=== PATIENT | female | born 1970 | race Caucasian/White ===

== ENCOUNTER 2016-09-21 10:15 | Inpatient (IN) | payer BC ==
--- NOTE | 2016-09-21 10:31 | PDOC ---
History of Present Illness - General Chief Complaint: Pain Stated Complaint: PRE-OP, Rt breast reconstruction sx Time Seen by Provider: 09/21/16 10:24 History Source: Patient Exam Limitations: No Limitations - History of Present Illness Initial Comments: CHIEF COMPLAINT: 46 y/o afebrile female with PMH HTN, GERD here for admission for right breast abscess. HISTORY OF PRESENT ILLNESS: The patient had breast implants done at [facility] in 2011 and states she's always had problems with the right breast. She states this past week the nipple of her right breast has become, swollen, painful, open and draining pus. The patient denies fever, chills, GABRIEL, neck pain , nausea, vomiting, diarrhea, constipation, CP, SOB, abd pain, back pain, hematuria, dysuria. She was sent in by Dr. Quispe for admission. He plans on bringing her to surgery today to debride the wound. Vital signs on arrival are notable for pulse of 101. REVIEW OF SYSTEMS: GENERAL/CONSTITUTIONAL: No fever/chills. No weakness. No weight change. HEAD, EYES, EARS, NOSE AND THROAT: No change in vision. No ear pain or discharge. No sore throat. CARDIOVASCULAR: No chest pain or shortness of breath. BREASTS: +swelling, redness, drainage to right breast RESPIRATORY: No cough, wheezing, or hemoptysis. GASTROINTESTINAL: No abd pain, nausea, vomiting, diarrhea, constipation. GENITOURINARY: No dysuria, frequency, or change in urination. MUSCULOSKELETAL: No joint or muscle swelling or pain. No neck or back pain. SKIN: No rash or easy bruising. NEUROLOGIC: No headache, vertigo, loss of consciousness, or loss of sensation. PHYSICAL EXAM: GENERAL: The patient is awake, alert, and fully oriented, in no acute distress. She is well appearing and ambulatory. HEAD: Normal with no signs of trauma. ENT: Pupils equal, round and reactive to light, extraocular movements intact, sclera anicteric, conjunctiva clear. Neck supple. LUNGS: Clear to auscultation bilaterally. Normal excursion. No respiratory distress or use of accessory muscles. BREASTS: Right breast is twice the size of the left breast, erythematous, warm and very TTP. The right areola is enlarged to 6cm, deformed, black and detached from the breast tissue on the medial border with active draining of purulent, foul smelling discharge. No active bleeding from open wound. CV: RRR, S1/S2, no MRG. Cap refill < 2 sec. ABDOMEN: Soft, non-distended, non-tender even to deep palpation, no hepatomegaly or splenomegaly, no masses. EXTREMITIES: Normal range of motion, no edema. NEUROLOGICAL: Normal speech, normal gait. CN II-XII grossly intact. PSYCH: Normal mood, normal affect. SKIN: Warm, dry, normal turgor, no rashes or lesions noted. Past History - Past Medical History Allergies/Adverse Reactions: Allergies Allergy/AdvReac Type Severity Reaction Status Date / Time shellfish derived Allergy Hives Verified 09/21/16 10:22 acetaminophen AdvReac vomitting Verified 09/21/16 10:22 [From Tylenol PM] diphenhydramine HCl AdvReac vomitting Verified 09/21/16 10:22 [From Tylenol PM] ibuprofen [From Motrin] AdvReac vomitting Verified 09/21/16 10:22 Home Medications: Ambulatory Orders Albuterol Sulfate [Proventil HFA Inhaler -] 1 - 2 inh PO TID 09/20/16 Aspirin [ASA -] 81 mg PO DAILY 09/20/16 Clonazepam [Klonopin] 1 mg PO TID 09/20/16 Metoprolol Succinate [Toprol Xl -] 25 mg PO DAILY 09/20/16 Omeprazole 20 mg PO DAILY 09/20/16 Oxycodone HCl/Acetaminophen [Percocet 5-325 mg Tablet] 2 tab PO Q6H PRN Anemia: No Asthma: Yes Cancer: No Cardiac Disorders: Yes (" muscle weak after childbirth") CVA: No COPD: No CHF: No Dementia: No Diabetes: No GI Disorders: Yes (gastritis, acid reflux) Disorders: No HTN: No Hypercholesterolemia: No Liver Disease: No Seizures: No Thyroid Disease: No - Surgical History Abdominal Surgery: Yes (neelam cook) - Psycho/Social/Smoking Cessation Hx Suicidal Ideation: No Smoking History: Never smoked Have you smoked in the past 12 months: No If you are a former smoker, when did you quit?: 11 years ago Information on smoking cessation initiated: No Hx Alcohol Use: No Drug/Substance Use Hx: No Substance Use Type: None Hx Substance Use Treatment: No *Physical Exam - Vital Signs Last Vital Signs Temp Pulse Resp BP Pulse Ox 97.5 F L 101 H 19 115/85 100 09/21/16 10:20 09/21/16 10:20 09/21/16 10:09/21/16 10:09/21/16 10:20 Medical Decision Making - Medical Decision Making A/P: 46 y/o afebrile female with right breast open wound that looks infected. Plan is to do pre-op labs and have her admitted to Dr. Quispe. Dr. Quispe informs me that she is scheduled for surgery this afternoon. The patient was made NPO. Ordered IV morphine and IV fluids. She is admitted to Dr. Quispe. *DC/Admit/Observation/Transfer Diagnosis at time of Disposition: Abscess of breast - Discharge Dispostion Condition at time of disposition: Stable Admit: Yes
[2016-09-21] MEDS ORDERED: SODIUM CHLORIDE 1,000 ML IV STA (10:47)
[2016-09-21] MEDS ORDERED: morphine CARPU-JECT 4 MG/1 ML DISP.SYRIN IVPUSH ONE (10:47)
[2016-09-21] MEDS ORDERED: morphine CARPU-JECT 4 MG/1 ML DISP.SYRIN ONE (11:29)
[2016-09-21 12:19] LABS: URINE APPEARANCE SLCLOUDY; URINE BILIRUBIN NEGATIVE (NEGATIVE); URINE BLOOD 3+ (NEGATIVE); URINE COLOR YELLOW; URINE GLUCOSE (UA) NEGATIVE (NEGATIVE); URINE KETONE 2+ (NEGATIVE); URINE LEUK ESTERASE TRACE (NEGATIVE); URINE NITRITE NEGATIVE (NEGATIVE)
[2016-09-21 12:23] LABS: URINE PROTEIN 1+ (NEGATIVE)
[2016-09-21 12:24] LABS: BASOPHIL 0.3 % (0-2.0); EOSINOPHIL 0.7 % (0-4.5); MCH 32.3 pg (25.7-33.7); MCHC 33.4 g/dl (32.0-36.0); MEAN CELL VOLUME 96.8 fl (80-96); MEAN PLT VOLUME 8.7 fl (7.5-11.1); NEUTROPHILS 68.1 % (42.8-82.8); PLATELET COUNT 256 K/MM3 (134-434); RDW 13.6 % (11.6-15.6); WHITE BLOOD COUNT 9.9 K/mm3 (4.0-10.0)
[2016-09-21 12:29] LABS: URINE MUCUS RARE; URINE RBC 1530 /hpf (0-3); URINE WBC 9 /hpf (3-5)
[2016-09-21 12:39] LABS: INR 0.98 (0.82-1.09); PROTHROMBIN TIME (PATIENT) 10.8 SEC (9.98-11.88)
[2016-09-21] MEDS ORDERED: PROPOFOL 20 ML ONE (13:07)
[2016-09-21] MEDS ORDERED: MIDAZOLAM HCL 2 MG/2 ML SINGLE DOSE VIAL ONE ×2 (13:08)
[2016-09-21 13:20] LABS: ALBUMIN 3.8 g/dl (3.4-5.0); ALK PHOS 77 U/L (45-117); ANION GAP 7 (8-16); BILIRUBIN,TOTAL 0.5 mg/dL (0.2-1.0); CALCIUM 8.8 mg/dL (8.5-10.1); CO2 25 mmol/L (21-32); CREATININE 0.7 mg/dL (0.55-1.02); GLUCOSE,RANDOM 73 mg/dL (74-106); SGPT/ALT 15 U/L (12-78); TOT PROT 7.3 g/dl (6.4-8.2)
[2016-09-21 13:24] LABS: SGOT/AST 15 U/L (15-37)
[2016-09-21] MEDS ORDERED: ceFAZolin SODIUM 1 GM VIAL IVPB ONE (13:42)
[2016-09-21] MEDS ORDERED: METOPROLOL TARTRATE 5 MG/5 ML VIAL ONE (13:54)
[2016-09-21] MEDS ORDERED: PROMETHAZINE HCL 25 MG/1 ML VIAL IVPUSH PRN (14:52)
[2016-09-21] MEDS ORDERED: HYDROmorphone HCL CARPU-JECT 1 MG/1 ML DISP.SYRIN IVPUSH PRN (14:52)
[2016-09-21] MEDS ORDERED: ONDANSETRON 4 MG/2 ML VIAL IVPUSH PRN (14:52)
[2016-09-21] MEDS ORDERED: LACTATED RINGERS SOLUTION 1,000 ML IV SCH (15:00)
--- NOTE | 2016-09-21 15:28 | OP ---
Operative Note - Note: Operative Date: 09/21/16 Pre-Operative Diagnosis: Acute Pain Right Breast with Open Wound and Necrosis of Nipple-Areola Complex Operation: Removal of Right Breast Prosthesis, Debridement of Necrotic Tissue, Placement of Wound VAC Post-Operative Diagnosis: Same as Pre-op Surgeon: German Quispe Anesthesia: General Specimens Removed: Necrotic Nipple Areolar Complex, Breast Prosthesis Drains & Tubes with Location: VAC dressing placed Operative Report Dictated: Yes
[2016-09-21] MEDS ORDERED: HYDROmorphone HCL CARPU-JECT 2 MG/1 ML DISP.SYRIN ONE (15:49)
--- NOTE | 2016-09-21 16:31 | EKG ---
Test Reason : Blood Pressure : / mmHG Vent. Rate : 084 BPM Atrial Rate : 084 BPM P-R Int : 124 ms QRS Dur : 076 ms QT Int : 362 ms P-R-T Axes : 046 035 024 degrees QTc Int : 427 ms NORMAL SINUS RHYTHM NORMAL ECG NO PREVIOUS ECGS AVAILABLE Confirmed by RANDALL PRESCOTT MD ([id number]) on 09/21/2016 4:31:42 PM Referred By: Confirmed By:RANDALL PRESCOTT MD
[2016-09-21 17:39] VITALS: BMI 26.6
[2016-09-21] MEDS: oxyCODONE HCL 5 MG TABLET PO PRN ×2 (18:17→21:35)
[2016-09-21] MEDS: PANTOPRAZOLE 20 MG TABLET (FP) PO SCH (23:31)
[2016-09-21] MEDS: clonazePAM 0.5 MG TABLET PO PRN (23:31)
--- NOTE | 2016-09-22 07:47 | PN ---
Progress Note (short form) - Note Progress Note: Vac in place. Patient remains in significant pain likely from VAC suction. Not sure that surgical space within breast is being adequately drained by VAC. Will change and assess later today. Will assess for discharge at that time but will likely not discharge today as pain management has been very difficult.
[2016-09-22] MEDS ORDERED: MEPERIDINE HCL CARPU-JECT 25 MG/1 ML DISP.SYRIN IVPUSH PRN ×2 (07:50→09:52)
[2016-09-22] MEDS ORDERED: ONDANSETRON 4 MG/2 ML VIAL IVPUSH PRN (08:50)
[2016-09-22] MEDS: clonazePAM 0.5 MG TABLET PO PRN ×3 (09:06→21:54)
[2016-09-22] MEDS: PANTOPRAZOLE 20 MG TABLET (FP) PO SCH (09:06)
[2016-09-22] MEDS: oxyCODONE HCL 5 MG TABLET PO PRN ×2 (09:06→16:41)
--- NOTE | 2016-09-22 09:13 | PN ---
Progress Note (short form) - Note Progress Note: ANESTHESIOLOGY POST-OP CHECK 46F s/p right breast implant removal and breast debridement under general anesthesia, POD #1. Pt sitting up in chair. C/o pain 10/10 and nausea with small amount of vomiting this morning. Said did not call nurse to ask for pain meds or nausea medication becuase didnt want to bother. Ambulating and voiding. Vital Signs Temperature 99 F 09/22/16 06:53 Pulse Rate 86 09/22/16 06:53 Respiratory Rate 18 09/22/16 06:53 Blood Pressure 111/71 09/22/16 06:53 O2 Sat by Pulse Oximetry (%) 100 09/21/16 16:30 Active Medications Clonazepam (Klonopin -) 0.5 mg PO Q6H PRN PRN Reason: ANXIETY Last Admin: 09/22/16 09:06 Dose: 0.5 mg Meperidine HCl (Demerol Injection -) 25 mg IVPUSH Q8H PRN PRN Reason: PAIN Ondansetron HCl (Zofran Injection) 4 mg IVPUSH Q4H PRN PRN Reason: NAUSEA AND/OR VOMITING Stop: 09/22/16 20:51 Last Admin: 09/22/16 09:07 Dose: 4 mg Oxycodone HCl (Roxicodone -) 5 mg PO Q4H PRN PRN Reason: PAIN Last Admin: 09/22/16 09:06 Dose: 5 mg Pantoprazole Sodium (Protonix -) 20 mg PO DAILY MELLISSA Last Admin: 09/22/16 09:06 Dose: 20 mg Gen: awake, alert, NAD No apparent anesthesia complications. REassured patient and instructed to not hesitate to call nurse and ask for medications when needed. Spoke with nurse as well. Continue management as per primary team.
[2016-09-22] MEDS ORDERED: PANTOPRAZOLE 20 MG TABLET (FP) PO ONE (12:15)
[2016-09-22] MEDS ORDERED: morphine CARPU-JECT 2 MG/1 ML DISP.SYRIN IVPUSH ONE (12:15)
[2016-09-22] MEDS: morphine CARPU-JECT 2 MG/1 ML DISP.SYRIN IVPUSH PRN (14:08)
--- NOTE | 2016-09-22 14:59 | OP ---
DATE OF OPERATION: 09/21/2016 PREOPERATIVE DIAGNOSIS: Acute and worsening pain, right breast, with open wound and necrosis of nipple-areolar complex. POSTOPERATIVE DIAGNOSIS: Acute and worsening pain, right breast, with open wound and necrosis of nipple-areolar complex. PROCEDURE PERFORMED: Removal of right breast prosthesis, debridement of necrotic tissue, and placement of wound vacuum-assisted closure. SURGEON: German Cotto MD ANESTHESIA: General via endotracheal tube. INDICATIONS: The patient presents with an open circumareolar breast wound with severe and worsening pain of the right breast. There is necrosis of the nipple-areolar complex which is full thickness in nature. The worsening nature of the patient's pain and impending exposure of a subglandular prosthesis warrants urgent surgical procedure. PROCEDURE: The patient is on the operating table in the supine position and general anesthesia was administered by the anesthesiologist. The area of the right chest was prepped and draped in the usual sterile fashion. An inframammary incision was made over a previous surgical scar approximately 6 cm in length. Dissection continued down through subcutaneous tissues using electrocautery and a large seroma cavity was entered and drained. The prosthesis was then removed. The nipple-areolar complex had full-thickness necrosis and this was debrided full thickness of the breast into the implant cavity. Debridement continued until bleeding tissue was appreciated. A wound VAC was then fashioned, creating a cylindrical plug using the wound foam and applying the VAC dressing. The patient was then awoken from anesthesia without any difficulty and she was taken from the operating room to the recovery room in satisfactory condition, having tolerated the procedure well. Prior to placement of the VAC dressing, the inframammary wound was closed in a layered fashion. Deep tissues were closed with No. 3-0 and 4-0 Biosyn suture in interrupted buried fashion and skin was closed with multiple 4-0 nylon sutures in interrupted fashion. A sterile dressing was placed over this which was included in the VAC dressing for an airtight seal. GERMAN COTTO M.D. /[id number]
--- NOTE | 2016-09-22 15:09 | PN ---
Progress Note (short form) - Note Progress Note: VAC dressing changed. No fluid collection in breast cavity. OK to discharge home if VAC unit available for home use.
[2016-09-23] MEDS: oxyCODONE HCL 5 MG TABLET PO PRN ×3 (02:20→23:07)
[2016-09-23] MEDS: clonazePAM 0.5 MG TABLET PO PRN ×2 (06:10→14:54)
[2016-09-23] MEDS: PANTOPRAZOLE 40 MG TABLET (FP) PO SCH (06:10)
[2016-09-23] MEDS: morphine CARPU-JECT 2 MG/1 ML DISP.SYRIN IVPUSH PRN ×2 (11:49→21:08)
[2016-09-24] MEDS: clonazePAM 0.5 MG TABLET PO PRN ×2 (02:20→10:19)
[2016-09-24] MEDS: PANTOPRAZOLE 40 MG TABLET (FP) PO SCH ×2 (06:01→06:03)
[2016-09-24] MEDS: oxyCODONE HCL 5 MG TABLET PO PRN ×4 (06:03→20:51)
[2016-09-24] MEDS ORDERED: BISACODYL 10 MG SUPP.RECT RC ONE (15:56)
[2016-09-24] MEDS ORDERED: BISACODYL 10 MG SUPP.RECT RC PRN (16:39)
[2016-09-24] MEDS: morphine CARPU-JECT 2 MG/1 ML DISP.SYRIN IVPUSH PRN (18:04)
--- NOTE | 2016-09-24 18:50 | PN ---
Progress Note (short form) - Note Progress Note: Patient improving somewhat. Constipation managed with Dulcolax. VAC dressing changed. Not much drainage in vac canister. Pinpoint bleeding noted in multiple areas around wound edges and within depth of wound. VAC replaced. To receive home unit tomorrow and discharge afterward.
[2016-09-24] MEDS ORDERED: ZOLPIDEM TARTRATE 5 MG TABLET PO ONE ×2 (19:01→22:00)
[2016-09-25] MEDS: PANTOPRAZOLE 40 MG TABLET (FP) PO SCH ×2 (05:54→06:55)
[2016-09-25] MEDS: oxyCODONE HCL 5 MG TABLET PO PRN ×4 (05:55→23:31)
[2016-09-25] MEDS: morphine CARPU-JECT 2 MG/1 ML DISP.SYRIN IVPUSH PRN (09:32)
[2016-09-25] MEDS: clonazePAM 0.5 MG TABLET PO PRN ×2 (09:44→20:48)
[2016-09-25] MEDS ORDERED: PT OWN MED DRAWER 7, Y5N ONE (12:45)
[2016-09-25] MEDS ORDERED: oxyCODONE HCL 5 MG TABLET ONE (12:47)
[2016-09-25] MEDS ORDERED: morphine CARPU-JECT 4 MG/1 ML DISP.SYRIN IVPUSH PRN (13:02)
--- NOTE | 2016-09-25 16:00 | PATH ---
Surgical Pathology Report Patient Name: RANDELL GONSALES Med. Rec. #: [id number] /Age/Gender: 1970 (Age: 46) / F Account: [id number] Location: [facility] MED/SURG Taken: 09/21/2016 Received: 09/22/2016 Reported: 09/25/2016 Physicians: German Quispe M.D. Specimen(s) Received A: NECROTIC TISSUE RIGHT BREAST B: REMOVED IMPLANT RIGHT BREAST Clinical History Open wound with tissue necrosis right breast Final Diagnosis A. RIGHT BREAST TISSUE, DEBRIDEMENT: GANGRENOUS NECROSIS. B. FINISH MENDER, RIGHT BREAST, REMOVAL: BREAST IMPLANT (GROSS ONLY). Electronically Signed Serg Dale M.D. Gross Description A. Received in formalin labeled "necrotic tissue right breast," is a 5.8 x 4.3 x 1.4 cm aggregate of dupont brown, necrotic soft tissue fragments. A inbound customer service representative portion is submitted in one cassette. B. Received fresh labeled "removed breast implant right," is a 15 cm in diameter x 3.5 cm in depth rubbery, disc-shaped object, consistent with a breast implant. No soft tissue is present. No sections are submitted, gross only. /09/22/2016 saudi09/22/2016
[2016-09-25] MEDS ORDERED: ZOLPIDEM TARTRATE 5 MG TABLET PO ONE (21:30)
[2016-09-26] MEDS: PANTOPRAZOLE 40 MG TABLET (FP) PO SCH (07:04)
[2016-09-26] MEDS: oxyCODONE HCL 5 MG TABLET PO PRN ×2 (07:04→12:19)
[2016-09-26] MEDS: clonazePAM 0.5 MG TABLET PO PRN (07:04)
[2016-09-26 14:57] VITALS: BP 109/69; PULSE 88; TEMP 98.2
== END 2016-09-26 15:33 | disposition home health service (06) | DRG 571 ==
LOC: JER 10:15 → JASUSAT 10:48 → JERBED 10:48 → UNDOADMIN 10:48 → J8W 17:35 → JERBED 17:35 → JASUSAT 17:35 → J8W 17:35 → JASUSAT 17:46 → J8W 09-22 19:00
PROVIDERS: ADMIT Plastic Surgery; ATTEND Plastic Surgery
PROC: 0HPT0JZ Removal of Synthetic Substitute from Right Breast, Open Approach (ICD-10-PCS; 2016-09-21)
PROC: 0JB60ZZ Excision of Chest Subcutaneous Tissue and Fascia, Open Approach (ICD-10-PCS; principal; 2016-09-21 12:45)
DX: N61.1 Abscess of the breast and nipple (principal); I96 Gangrene, not elsewhere classified; I10 Essential (primary) hypertension; K21.9 Gastro-esophageal reflux disease without esophagitis; J45.909 Unspecified asthma, uncomplicated
CPT/HCPCS: 36415; 80053; 81003; 81015; 84703; 85025; 85610; 86850; 86900; 86901; 88300-TC; 88304-TC; 93005; 93010; 94760; 99282-25

== ENCOUNTER 2017-03-15 06:20 | Day surgery (SDC) | payer BC ==
[2017-03-14 15:42] VITALS: BMI 26.1
[2017-03-15] MEDS ORDERED: fentaNYL CITRATE 250 MCG/5 ML VIAL ONE (07:50)
[2017-03-15] MEDS ORDERED: PROPOFOL 20 ML ONE ×2 (07:50→09:16)
[2017-03-15] MEDS ORDERED: ROCURONIUM BROMIDE 50 MG/5 ML VIAL ONE (07:50)
[2017-03-15] MEDS ORDERED: MIDAZOLAM HCL 2 MG/2 ML SINGLE DOSE VIAL ONE (07:50)
[2017-03-15] MEDS ORDERED: SUCCINYLCHOLINE CHLORIDE 200 MG/10 ML VIAL ONE (07:51)
[2017-03-15] MEDS ORDERED: LIDOCAINE HCL/PF 2% SDV 5ML VIAL ONE (07:52)
[2017-03-15] MEDS ORDERED: ceFAZolin SODIUM 1 GM VIAL IVPB ONE (08:22)
[2017-03-15] MEDS ORDERED: ceFAZolin SODIUM 1 GM VIAL ONE (08:32)
[2017-03-15] MEDS ORDERED: DEXAMETHASONE SOD PHOSPHATE 4 MG/1 ML VIAL ONE (08:42)
[2017-03-15] MEDS ORDERED: GLYCOPYRROLATE 0.2 MG/1 ML VIAL ONE ×2 (09:21)
[2017-03-15] MEDS ORDERED: ONDANSETRON 4 MG/2 ML VIAL ONE (09:22)
[2017-03-15] MEDS ORDERED: NEOSTIGMINE METHYLSULFATE 0.5 MG/ML - 10 ML MDV ONE (09:22)
[2017-03-15] MEDS ORDERED: ONDANSETRON 4 MG/2 ML VIAL IVPUSH PRN (10:12)
--- NOTE | 2017-03-15 10:28 | OP ---
Operative Note - Note: Operative Date: 03/15/17 Pre-Operative Diagnosis: Absence of Right Breast and Nipple Areola Complex Operation: Right Breast Staged Reconstruction, Insertion of Submuscular Tissue Short Order Cook and Perforated Alloderm Sheet Implants: Tissue Short Order Cook: [place] CPX4 Tall Height 450cc Post-Operative Diagnosis: Same as Pre-op Surgeon: German Quispe Anesthesia: General Estimated Blood Loss (mls): 20 Drains & Tubes with Location: 15 Fr Round Lex-Wasserman x 1- Exiting Right Anterior Axillary Line Operative Report Dictated: Yes
[2017-03-15] MEDS ORDERED: oxyCODONE HCL 5 MG TABLET ONE ×2 (11:15→12:34)
--- NOTE | 2017-03-15 11:24 | OP ---
DATE OF OPERATION: 03/15/2017 PREOPERATIVE DIAGNOSIS: Absence of right breast and near-total absence of nipple-areolar complex. POSTOPERATIVE DIAGNOSIS: Absence of right breast and near-total absence of nipple-areolar complex. PROCEDURE PERFORMED: Right breast staged reconstruction with insertion of submuscular tissue correctional food service supervisor and perforated AlloDerm sheet. SURGEON: German Cotto MD ANESTHESIA: General. DESCRIPTION OF PROCEDURE: The patient was on the operating table in supine position, and general anesthesia was administered by the anesthesiologist. The area of the chest was prepped and draped in usual sterile fashion. The right breast was approached by reopening of the previously placed inframammary incision using a number 15 scalpel blade. This was carried down sharply through subcutaneous tissues, and hemostasis was achieved with electrocautery. Further dissection was facilitated with the electrocautery superiorly until the inferior edge of the pectoralis major muscle was identified. The lower segments of the muscle were scarred from previous surgery, so it was elected to facilitate coverage of a tissue correctional food service supervisor once inserted using a perforated AlloDerm sheet. The dissection continued superiorly in the subpectoral plane and laterally and medially adequately to support a tissue correctional food service supervisor of appropriate size. Tissue correctional food service supervisor selected was a [place] CPX 4 tall-height correctional food service supervisor, 450 mL in size. The tissue correctional food service supervisor was inserted without any difficulty, and orientation was confirmed using the tabs at the 3, 6, and 9 o'clock positions. The inferior tab was affixed to the underlying tissues using a 2-0 Vicryl suture. A sheet of perforated AlloDerm was brought onto the field and soaked for approximately 10 minutes. The inferior edge of the pectoralis major muscle and the dimensions of the pocket beneath it were measured, and the AlloDerm was trimmed to size. The AlloDerm was sutured superiorly to the inferior edge of the pectoralis major muscle using 2-0 Vicryl suture in interrupted horizontal mattress fashion, and the inferior border was draped over the tissue correctional food service supervisor and sutured at the level of the inframammary fold similarly with 2-0 Vicryl sutures in interrupted horizontal mattress fashion. Prior to suturing the inferior edge of the AlloDerm, a 15-[place] Island[place] round Lex-Wasserman drain was inserted through a separate stab incision in the anterior axillary line lateral to the inframammary fold. This was directed around and behind the tissue correctional food service supervisor and trimmed to size. Closure was then begun. Deep tissues were closed with 3-0 Biosyn suture in interrupted buried fashion and a deep dermal layer of 4-0 V-Loc 90 was used as an intradermal layer for skin. Several 5-0 nylon sutures were placed in interrupted fashion to secure the skin. Of note, prior to placing the tissue correctional food service supervisor, all air was removed and approximately 50 mL of saline was instilled. Now, at the conclusion of the procedure, the port finder was used to identify the port superiorly, and an additional 50 mL was instilled percutaneously. So, the total in the tissue correctional food service supervisor at the conclusion of the procedure was 100 mL. The patient was then awoken from anesthesia without any difficulty and taken from the operating room to the recovery room in satisfactory condition, having tolerated the procedure well. GERMAN COTTO M.D. /[id number]
[2017-03-15] MEDS ORDERED: LACTATED RINGERS SOLUTION 1,000 ML IV SCH (13:45)
[2017-03-15 14:06] VITALS: BP 130/80; PULSE 70; TEMP 98
== END 2017-03-15 14:15 | disposition home or self-care (01) ==
LOC: JASU-SURG 06:20
PROVIDERS: ATTEND Plastic Surgery
PROC: 0HHT0NZ Insertion of Tissue Expander into Right Breast, Open Approach (ICD-10-PCS; principal; 2017-03-15 08:00)
PROC: 0HHT0NZ Insertion of Tissue Expander into Right Breast, Open Approach (ICD-10-PCS; 2017-03-15 08:00)
DX: Z90.11 Acquired absence of right breast and nipple (principal)
CPT/HCPCS: 84703; 94760

== ENCOUNTER 2017-07-19 06:16 | Day surgery (SDC) | payer BC ==
[2017-07-17 17:40] VITALS: BMI 25.0
[~2017-07-19 06:16] MED LIST: ceFAZolin SODIUM 1 GM VIAL IVPB ONE
[2017-07-19] MEDS ORDERED: ONDANSETRON 4 MG/2 ML VIAL IVPUSH PRN (10:04)
[2017-07-19] MEDS ORDERED: PROMETHAZINE HCL 25 MG/1 ML VIAL IVPUSH PRN (10:04)
[2017-07-19] MEDS ORDERED: oxyCODONE HCL 5 MG TABLET PO PRN (10:04)
[2017-07-19] MEDS ORDERED: LACTATED RINGERS SOLUTION 1,000 ML IV SCH (10:15)
[2017-07-19] MEDS ORDERED: MIDAZOLAM HCL 2 MG/2 ML SINGLE DOSE VIAL ONE ×2 (10:23)
[2017-07-19] MEDS ORDERED: PROPOFOL 20 ML ONE ×2 (11:02→11:07)
[2017-07-19] MEDS ORDERED: ROCURONIUM BROMIDE 50 MG/5 ML VIAL ONE (11:02)
[2017-07-19] MEDS ORDERED: ceFAZolin SODIUM 1 GM VIAL IVPB ONE (11:08)
--- NOTE | 2017-07-19 11:56 | EKG ---
Test Reason : Blood Pressure : / mmHG Vent. Rate : 056 BPM Atrial Rate : 056 BPM P-R Int : 130 ms QRS Dur : 078 ms QT Int : 456 ms P-R-T Axes : 040 046 055 degrees QTc Int : 440 ms SINUS BRADYCARDIA OTHERWISE NORMAL ECG WHEN COMPARED WITH ECG OF 21-SEP-2016 11:56, VENT. RATE HAS DECREASED BY 28 BPM Confirmed by RANDALL PRESCOTT MD ([id number]) on 07/19/2017 11:55:48 AM Referred By: SAPPHIRE COTTO Confirmed By:RANDALL PRESCOTT MD
--- NOTE | 2017-07-19 12:14 | OP ---
Operative Note - Note: Operative Date: 07/19/17 Pre-Operative Diagnosis: Acquired Absence of Right Breast, Presence of Tissue Oyster Grower Operation: Right Breast Reconstruction Revision, Removal of Tissue Oyster Grower, Insertion of Permanent Prosthesis Implants: [place] Round Smooth Moderate Plus Profile 450cc Surgeon: German Quispe Anesthesia: General Operative Report Dictated: Yes
--- NOTE | 2017-07-19 13:08 | OP ---
DATE OF OPERATION: 07/19/2017 PREOPERATIVE DIAGNOSIS: Acquired absence of right breast with presence of tissue hvac r tech. POSTOPERATIVE DIAGNOSIS: Acquired absence of right breast with presence of tissue hvac r tech. PROCEDURE PERFORMED: Right breast reconstruction revision with removal of tissue hvac r tech and insertion of permanent prosthesis. SURGEON: German Cotto MD ANESTHESIA: General via LMA. DESCRIPTION OF PROCEDURE: The patient is on the operating table in the supine position, and general anesthesia was administered by the anesthesiologist. The area of the chest was prepped and draped in the usual sterile fashion. Markings had been made on the patient prior to surgery in a standing position, and these markings were now used as a guide for surgery. A portion of the previous surgical scar was incised with a No. 15 scalpel blade and dissection continued down through subcutaneous tissues using electrocautery. The AlloDerm cover of the previously placed tissue hvac r tech was incised, and the tissue hvac r tech was punctured and drained. It was then easily removed. A fiberoptic lighted retractor was used to examine the pocket, and the inframammary fold was lowered approximately 1 cm based upon measurements of the contralateral side. The pocket was also enlarged medially and superiorly. The implant selected was a [place] MemoryGel Smooth Round Moderate Plus Profile gel implant 450 350 mL in size. The pocket was irrigated with a solution of dilute Betadine, and the implant was inserted with the assistance of a Smyth Funnel. After ensuring proper implant orientation and position, the AlloDerm layer was reapproximated using 3-0 bios in interrupted fashion. The wound was then closed. Deep tissues were closed with No. 3-0 Biosyn suture in interrupted buried fashion, and a deep dermal layer of 4-0 V-Lock 90 was used for skin closure. Steri-Strips were applied as were sterile dressings, which were secured with a surgical bra. The patient was then awoken from anesthesia without any difficulty and taken from the operating room to the recovery room in satisfactory condition having tolerated the procedure well. GERMAN COTTO M.D. [id number]
[2017-07-19 13:33] VITALS: TEMP 98.7
[2017-07-19] MEDS ORDERED: oxyCODONE HCL 5 MG TABLET ONE (14:14)
[2017-07-19 14:49] VITALS: BP 148/87; PULSE 64
--- NOTE | 2017-07-20 17:43 | PATH ---
Surgical Pathology Report Patient Name: RANDELL GONSALES [facility]. Rec. #: [id number] /Age/Gender: 1970 (Age: 47) / F Account: [id number] Location: AMBULATORY SURG Taken: 07/19/2017 Received: 07/19/2017 Reported: 07/20/2017 Physicians: German Quispe M.D. Specimen(s) Received RIGHT BREAST EDGERMAN Clinical History Breast cancer Final Diagnosis BREAST, RIGHT, TISSUE EDGERMAN, REMOVAL: BREAST TISSUE EDGERMAN. MACROSCOPIC DIAGNOSIS. Electronically Signed Misti Reza M.D. Gross Description Received fresh labeled "right breast tissue electronics teacher," is a 12.5 x 12.5 x 5.0 cm foreign body, consistent with a breast tissue electronics teacher. No soft tissue is present. No sections are submitted, gross only. DL/07/19/2017 saudi/07/19/2017
== END 2017-07-19 14:50 | disposition home or self-care (01) ==
LOC: JASUSAT 06:16
PROVIDERS: ATTEND Plastic Surgery
PROC: 0HPT0NZ Removal of Tissue Expander from Right Breast, Open Approach (ICD-10-PCS; principal; 2017-07-19 10:00)
PROC: 0HRT0JZ Replacement of Right Breast with Synthetic Substitute, Open Approach (ICD-10-PCS; 2017-07-19 10:00)
DX: Z90.11 Acquired absence of right breast and nipple (principal)
CPT/HCPCS: 84703; 93005; 93010; 94760

== ENCOUNTER 2017-09-14 06:05 | Day surgery (SDC) | payer BC ==
[2017-09-13 14:54] VITALS: BMI 24.2
[2017-09-14] MEDS ORDERED: MIDAZOLAM HCL 2 MG/2 ML SINGLE DOSE VIAL ONE (07:58)
[2017-09-14] MEDS ORDERED: DEXAMETHASONE SOD PHOSPHATE 4 MG/1 ML VIAL ONE ×2 (08:17→09:28)
[2017-09-14] MEDS ORDERED: ceFAZolin SODIUM 1 GM VIAL ONE (08:22)
[2017-09-14] MEDS ORDERED: ceFAZolin SODIUM 1 GM VIAL IVPB ONE (08:22)
[2017-09-14] MEDS ORDERED: LIDOCAINE HCL/PF 2% SDV 5ML VIAL ONE (08:22)
[2017-09-14] MEDS ORDERED: PROPOFOL 20 ML ONE (08:22)
[2017-09-14] MEDS ORDERED: ROCURONIUM BROMIDE 50 MG/5 ML VIAL ONE (08:23)
[2017-09-14] MEDS ORDERED: NEOSTIGMINE METHYLSULFATE 0.5 MG/ML - 10 ML MDV ONE (09:45)
[2017-09-14] MEDS ORDERED: LACTATED RINGERS SOLUTION 1,000 ML IV SCH (10:00)
[2017-09-14] MEDS ORDERED: PROMETHAZINE HCL 25 MG/1 ML VIAL IVPB PRN (10:00)
[2017-09-14] MEDS ORDERED: MIDAZOLAM HCL 2 MG/2 ML SINGLE DOSE VIAL IVPUSH ONE (10:00)
--- NOTE | 2017-09-14 10:18 | OP ---
Operative Note - Note: Operative Date: 09/14/17 Pre-Operative Diagnosis: Persistent Right Breast Deformity After Breast Reconstruction Operation: Removal and Replacement of Right Breast Prosthesis with Revision of Implant Pocket, Revision of Right Mastopexy for Symmetry. Implants: [place] Moderate Plus Round Silicone 450cc Post-Operative Diagnosis: Same as Pre-op Surgeon: German Quispe Anesthesiologist/YARD ATTENDANT: Jules Saenz Anesthesia: General Drains & Tubes with Location: None Operative Report Dictated: Yes
[2017-09-14] MEDS: oxyCODONE HCL 5 MG TABLET PO PRN ×2 (11:00→11:10)
[2017-09-14 13:39] VITALS: BP 128/80; PULSE 65
[2017-09-14 14:18] VITALS: TEMP 97.8
[2017-09-14] MEDS ORDERED: oxyCODONE HCL 5 MG TABLET PO ONE (14:45)
--- NOTE | 2017-09-14 16:52 | OP ---
DATE OF OPERATION: 09/14/2017 PREOPERATIVE DIAGNOSIS: Persistent right breast deformity after breast reconstruction. POSTOPERATIVE DIAGNOSIS: Persistent right breast deformity after breast reconstruction. PROCEDURE PERFORMED: Removal and replacement of right breast prosthesis with revision of implant pocket and revision of right mastopexy for symmetry. SURGEON: German Quispe MD ANESTHESIA: General via endotracheal tube. BRIEF HISTORY: The patient has a persistent deformity of the right breast with near total loss of the nipple-areolar complex except for some spotty pigmentation and significant volume loss in the medial breast. The current implant has also descended, and this is to be corrected. PROCEDURE: The patient is on the operating table in supine position, and general anesthesia was administered by the anesthesiologist. The area of the chest is prepped and draped in usual sterile fashion. The patient was marked in the standing position prior to surgery, and these markings were now used as a guide for the procedure. Incisions were made as marked, but due to the patient's previous history, the circumareolar incision was not completely made and was limited to approximately 2/3 of the incision in the region of the proposed areola. This semi-circular inferior incision was connected to remaining incisions that excised previous mastopexy scars and excised skin medially. The incised area was de-epithelialized, and medial and lateral flaps were mobilized and advanced. The implant was removed from the inframammary approach after dividing the inframammary tissues with electrocautery. A similar size and shape implant to what had previously been placed was used. Prior to replacing the implant, the implant pocket was reduced in size inferiorly using 3-0 Biosyn suture in interrupted fashion, thus elevating the lower pole of the implant. The new implant was then reinserted using a Smyth funnel after irrigating the pocket with a dilute Betadine solution. The flaps were then inset in layered fashion using 3-0 and 4-0 Biosyn suture in interrupted buried fashion and using number 5-0 nylon suture in interrupted fashion for skin. Xeroform and sterile dressings were then applied and secured with a surgical bra. The patient was then awoken from anesthesia without any difficulty and taken from the operating room to the recovery room in satisfactory condition, having tolerated the procedure well. Chaparro JACOBSEN/[id number]
== END 2017-09-14 13:35 | disposition home or self-care (01) ==
LOC: JASUSAT 06:05
PROVIDERS: ATTEND Plastic Surgery
PROC: 0HPT0JZ Removal of Synthetic Substitute from Right Breast, Open Approach (ICD-10-PCS; 2017-09-14)
PROC: 0HRT0JZ Replacement of Right Breast with Synthetic Substitute, Open Approach (ICD-10-PCS; 2017-09-14)
PROC: 0HRT0JZ Replacement of Right Breast with Synthetic Substitute, Open Approach (ICD-10-PCS; principal; 2017-09-14 08:00)
DX: N65.1 Disproportion of reconstructed breast (principal)
CPT/HCPCS: 84703; 94760

== ENCOUNTER 2018-02-08 05:44 | Day surgery (SDC) | payer BC ==
[2018-02-07 17:36] VITALS: BMI 26.2
[2018-02-08] MEDS ORDERED: ePHEDrine SULFATE 50 MG/1 ML AMPULE ONE (07:24)
[2018-02-08] MEDS ORDERED: LIDOCAINE HCL/PF 2% SDV 5ML VIAL ONE (07:24)
[2018-02-08] MEDS ORDERED: ROCURONIUM BROMIDE 50 MG/5 ML VIAL ONE (07:24)
[2018-02-08] MEDS ORDERED: PROPOFOL 20 ML ONE ×2 (07:24→08:25)
[2018-02-08] MEDS ORDERED: MIDAZOLAM HCL 2 MG/2 ML SINGLE DOSE VIAL ONE (07:24)
[2018-02-08] MEDS ORDERED: SODIUM CHLORIDE 0.9% P/F 10 ML VIAL IJ ONE (07:26)
[2018-02-08] MEDS ORDERED: ceFAZolin SODIUM 1 GM VIAL ONE (08:28)
[2018-02-08] MEDS ORDERED: ceFAZolin 2 GRAM PREMIX BAG IVPB ONE (08:29)
[2018-02-08] MEDS ORDERED: DESFLURANE GAS 240 ML BOTTLE IH ONE (09:10)
[2018-02-08] MEDS ORDERED: ONDANSETRON 4 MG/2 ML VIAL IVPUSH PRN (09:10)
[2018-02-08] MEDS ORDERED: oxyCODONE HCL 5 MG TABLET PO PRN (09:10)
[2018-02-08] MEDS ORDERED: LACTATED RINGERS SOLUTION 1,000 ML IV SCH (09:15)
[2018-02-08] MEDS ORDERED: ONDANSETRON 4 MG/2 ML VIAL ONE (10:44)
[2018-02-08] MEDS ORDERED: oxyCODONE HCL 5 MG TABLET ONE (10:58)
--- NOTE | 2018-02-08 11:04 | OP ---
Operative Note - Note: Operative Date: 02/08/18 Pre-Operative Diagnosis: Breast Asymmetry after Reconstruction Operation: Right Breast Reconstruction Revision, Removal of Prosthesis, Revision of Implant Pocket, Insertion of High Profile Prosthesis, Insertion of Alloderm Sheet Implants: [place] Smooth Round High Profile 500cc Post-Operative Diagnosis: Same as Pre-op Surgeon: German Quispe Anesthesia: General Estimated Blood Loss (mls): 10 Drains & Tubes with Location: None Operative Report Dictated: Yes
[2018-02-08 11:42] VITALS: TEMP 97.3
[2018-02-08 13:40] VITALS: BP 132/80; PULSE 64
--- NOTE | 2018-02-09 07:16 | OP ---
DATE OF OPERATION: 02/08/2018 PREOPERATIVE DIAGNOSIS: Breast asymmetry after breast reconstruction. POSTOPERATIVE DIAGNOSIS: Breast asymmetry after breast reconstruction. PROCEDURE PERFORMED: Right breast reconstruction revision, removal of right breast prosthesis, revision of implant pocket, insertion of High Profile prosthesis, and insertion of Alloderm sheath. SURGEON: German Quispe MD ANESTHESIA: General via LMA. BRIEF HISTORY: The patient presents with an asymmetry after breast reconstruction, which specifically has the right breast with a smaller volume and significantly less projection. The patient also has lateral displacement of the prosthesis with significant skin excess extending under the right arm. The patient now presents for revision. DESCRIPTION OF PROCEDURE: The patient was marked in the standing position and was now placed in a supine position on the operating table. General anesthesia was administered by the anesthesiologist, and the area of the chest was prepped and draped in the usual sterile fashion. The incision was made at the inferior pole of the right breast excising previous surgical scar and extending laterally onto the lateral aspect of the breast in a curvilinear fashion designed to advance lateral skin medially. This incision was carried down through subcutaneous tissues using electrocautery, and hemostasis was achieved. The previous implant was exposed and removed without difficulty. The lateral implant pocket was reduced in its dimension using 2-0 Ethibond sutures in interrupted fashion throughout the entire lateral and inferolateral portion of the implant pocket. The implant that was then selected was a [place] round smooth High Profile implant 500 mL in size. This pocket was irrigated with a solution of dilute Betadine, and the implant was then inserted with the assistance of a Smyth Funnel. The implants orientation was confirmed to be correct. Prior to insertion of this implant, a sheet of medium thickness perforated Alloderm was brought to the field and soaked for 10 minutes in normal saline. The Alloderm was cut to size and sutured at the level of the inframammary fold medially where a significant thinned area of overlying tissue was appreciated. When the implant was inserted, it was inserted underneath this Alloderm sheath, and the Alloderm sheath was then reflected over the inframedial aspect of the implant, and several sutures were placed superiorly to hold it correctly without folding once the implant was in position. Closure was then performed in layered fashion. Deep tissues were closed using No. 3-0 Biosyn suture in interrupted buried fashion and a 4-0 V-Lock 90 suture was used in a deep dermal fashion for wound closure. The wound was further secured with Steri-Strips. Sterile dressings were then applied including a padding on the lateral side of the right breast to help push the implant medially to allow for the previously described suture line to heal correctly. The patient was then awoken from anesthesia without any difficulty and taken from the operating room to the recovery room in satisfactory condition having tolerated the procedure well. Chaparro JACOBSEN/[id number]
--- NOTE | 2018-02-11 16:52 | PATH ---
Surgical Pathology Report Patient Name: RANDELL GONSALES Med. Rec. #: [id number] /Age/Gender: 1970 (Age: 47) / F Account: [id number] Location: [facility] SURGICAL Taken: 02/08/2018 Received: 02/08/2018 Reported: 02/11/2018 Physicians: German Quispe M.D. Specimen(s) Received A: WOUND DEBRIDEMENT TISSUE B: REMOVED BREAST IMPLANT Clinical History Absence of breast Final Diagnosis A. SKIN AND SOFT TISSUE, WOUND, DEBRIDEMENT: SKIN AND UNDERLYING SUBCUTANEOUS TISSUE WITHOUT SIGNIFICANT PATHOLOGIC FINDINGS. B. BREAST IMPLANT, REMOVAL: BREAST IMPLANT. MACROSCOPIC DIAGNOSIS. Electronically Signed Misti Reza M.D. Gross Description A. Received in formalin labeled "wound debridement," is a 6.8 x 1.9 cm dupont, elliptical, unoriented portion of skin excised to a depth of 1.2 cm. The epidermal surface is grossly unremarkable. Outboard Motor Inspector sections are submitted in one cassette. B. Received fresh labeled "breast implant removed," is a 14 cm in diameter x 4 cm in depth clear, rubbery, intact breast implant. No soft tissue is present. No sections are submitted, gross only. 02/08/2018 [place]02/08/2018
== END 2018-02-08 13:41 | disposition home or self-care (01) ==
LOC: JASU-SURG 05:44
PROVIDERS: ATTEND Plastic Surgery
PROC: 0HWT0JZ Revision of Synthetic Substitute in Right Breast, Open Approach (ICD-10-PCS; principal; 2018-02-08 08:00)
DX: N65.1 Disproportion of reconstructed breast (principal)
CPT/HCPCS: 84703; 88300-TC; 88304-TC; 94760

== ENCOUNTER 2018-06-13 06:03 | Day surgery (SDC) | payer BC ==
[2018-06-12 10:44] VITALS: BMI 25.9
[2018-06-13] MEDS ORDERED: MIDAZOLAM HCL 2 MG/2 ML SINGLE DOSE VIAL ONE ×2 (07:10→10:03)
[2018-06-13] MEDS ORDERED: LIDOCAINE HCL/PF 2% SDV 5ML VIAL ONE ×2 (07:14→08:35)
[2018-06-13] MEDS ORDERED: KETOROLAC TROMETHAMINE 30 MG/1 ML VIAL ONE (07:14)
[2018-06-13] MEDS ORDERED: DEXAMETHASONE SOD PHOSPHATE 4 MG/1 ML VIAL ONE ×2 (07:14→08:43)
[2018-06-13] MEDS ORDERED: ROCURONIUM BROMIDE 50 MG/5 ML VIAL ONE (07:16)
[2018-06-13] MEDS ORDERED: SUCCINYLCHOLINE CHLORIDE 200 MG/10 ML VIAL ONE (07:16)
[2018-06-13] MEDS ORDERED: SEVOFLURANE 250 ML BTL ONE (07:25)
[2018-06-13] MEDS ORDERED: DESFLURANE GAS 240 ML BOTTLE IH ONE (07:25)
[2018-06-13] MEDS ORDERED: ONDANSETRON 4 MG/2 ML VIAL IVPUSH PRN (07:56)
[2018-06-13] MEDS ORDERED: oxyCODONE HCL 5 MG TABLET PO PRN ×2 (07:56)
[2018-06-13] MEDS ORDERED: LACTATED RINGERS SOLUTION 1,000 ML IV SCH (08:00)
[2018-06-13] MEDS ORDERED: PROPOFOL 20 ML ONE ×6 (08:16→08:37)
[2018-06-13] MEDS ORDERED: ceFAZolin SODIUM 1 GM VIAL IVPB ONE (08:25)
[2018-06-13] MEDS ORDERED: ceFAZolin SODIUM 1 GM VIAL ONE (08:30)
--- NOTE | 2018-06-13 10:32 | OP ---
Operative Note - Note: Operative Date: 06/13/18 Pre-Operative Diagnosis: Breast Asymmetry after Bilateral Breast Reconstruction Operation: Right Breast Implant removal, Revision of Implant Pocket, Insertion of Alloderm Sheet, Insertion of Kcpdm-Ewiv-Yengsge Prosthesis. Implants: [place] Smooth Round Silicone Azoby-Ruhn-Zzaghgz 590cc Post-Operative Diagnosis: Same as Pre-op Surgeon: German Quispe Anesthesia: General Operative Report Dictated: Yes
--- NOTE | 2018-06-13 11:15 | OP ---
DATE OF OPERATION: 06/13/2018 PREOPERATIVE DIAGNOSIS: Breast asymmetry after bilateral breast reconstruction. POSTOPERATIVE DIAGNOSIS: Breast asymmetry after bilateral breast reconstruction. PROCEDURE PERFORMED: Right breast implant removal, revision of right breast implant pocket, insertion of AlloDerm sheet and insertion of ultra high-profile prosthesis. SURGEON: German Cotto MD ANESTHESIA: General via LMA. PROCEDURE: The patient was on the operating table in the supine position and general anesthesia was administered by the anesthesiologist. The area of the chest was prepped and draped in the usual sterile fashion. The previous inframammary incision was reopened with a No. 15 scalpel blade and dissection was carried down through subcutaneous tissues using electrocautery. The implant capsule was then entered and opened the length of the incision. The implant was then removed without any difficulty. The lighted retractor was then brought on to the field and the implant pocket was further extended superiorly, superomedially and medially to accommodate the new higher profile and larger implant. The patient has a central depression in the breast and in order to attempt to repair this as it is due to window shading of the muscle a medium-sized sheet of perforated AlloDerm was brought to the field and soaked in normal saline for approximately 10 minutes. A template was made and the AlloDerm was cut to size. The AlloDerm was then sutured to the inferior border of the muscle superiorly using multiple 3-0 Vicryl sutures in interrupted mattress fashion. The implant selected was a [place] MemoryGel smooth round ultra high profile silicone implant, 590 mL in size. Surgical gloves and gowns were changed and a Smyth funnel was cut to size. The implant was then inserted without difficulty retracting the AlloDerm during insertion. The AlloDerm was then completely reflected over the implant and sutured at the level of the inframammary fold using 3-0 Vicryl suture in interrupted mattress fashion. Skin was then closed in layered fashion. Deep tissues were closed with No. 3-0 Biosyn suture in interrupted buried fashion and a running 4-0 V-Loc 90 suture was used for closure. The wounds were further secured with Steri-Strips and the patient was awoken from anesthesia without any difficulty. She was taken from the operating room to the recovery room in satisfactory condition having tolerated the procedure well. GERMAN COTTO M.D. /[id number]
[2018-06-13] MEDS ORDERED: oxyCODONE HCL 5 MG TABLET ONE (12:31)
[2018-06-13] MEDS ORDERED: oxyCODONE HCL 5 MG TABLET PO ONE (12:35)
[2018-06-13 13:37] VITALS: BP 108/56; PULSE 85; TEMP 98.2
--- NOTE | 2018-06-14 19:22 | PATH ---
Surgical Pathology Report Patient Name: RANDELL GONSALES Med. Rec. #: [id number] /Age/Gender: 1970 (Age: 48) / F Account: [id number] Location: AMBULATORY SURG Taken: 06/13/2018 Received: 06/13/2018 Reported: 06/14/2018 Physicians: German Quispe M.D. Specimen(s) Received RIGHT BREAST IMPLANT Clinical History Breast asymmetry of right breast after breast reconstruction Final Diagnosis BREAST IMPLANT, RIGHT, EXCISION: BREAST IMPLANT. MACROSCOPIC DIAGNOSIS. Electronically Signed Misti Reza M.D. Gross Description Received fresh labeled "right breast implant," is a 13 cm in diameter x 4 cm in depth clear, rubbery, intact breast implant. No soft tissue is present. No sections are submitted, gross only. /06/13/2018 [facility]06/13/2018
== END 2018-06-13 13:20 | disposition home or self-care (01) ==
LOC: JASUSAT 06:03
PROVIDERS: ATTEND Plastic Surgery
PROC: 0HUT0JZ Supplement Right Breast with Synthetic Substitute, Open Approach (ICD-10-PCS; 2018-06-13)
PROC: 0HPT0JZ Removal of Synthetic Substitute from Right Breast, Open Approach (ICD-10-PCS; principal; 2018-06-13 08:00)
PROC: 0HUT0JZ Supplement Right Breast with Synthetic Substitute, Open Approach (ICD-10-PCS; 2018-06-13 08:00)
DX: N65.1 Disproportion of reconstructed breast (principal)
CPT/HCPCS: 84703; 88300-TC; 94760

== ENCOUNTER 2018-12-31 06:02 | Day surgery (SDC) | payer BC ==
[2018-12-30 08:39] VITALS: BMI 25.9
[2018-12-31] MEDS ORDERED: fentaNYL CITRATE 250 MCG/5 ML VIAL ONE (09:56)
[2018-12-31] MEDS ORDERED: MIDAZOLAM HCL 2 MG/2 ML SINGLE DOSE VIAL ONE ×3 (09:56→12:37)
[2018-12-31] MEDS ORDERED: ceFAZolin SODIUM 1 GM VIAL IVPB ONE (11:07)
[2018-12-31] MEDS ORDERED: ceFAZolin SODIUM 1 GM VIAL ONE ×2 (12:29)
[2018-12-31] MEDS ORDERED: PHENYLEPHRINE HCL 10 MG/1 ML SINGLE DOSE VIAL ONE (12:29)
[2018-12-31] MEDS ORDERED: DEXAMETHASONE SOD PHOSPHATE 4 MG/1 ML VIAL ONE (12:29)
[2018-12-31] MEDS ORDERED: HYDROmorphone HCl 2 MG/ML VIAL ONE (12:40)
[2018-12-31] MEDS ORDERED: oxyCODONE HCL 5 MG TABLET PO PRN ×2 (13:15→13:18)
--- NOTE | 2018-12-31 13:15 | OP ---
Operative Note - Note: Operative Date: 12/31/18 Pre-Operative Diagnosis: s/p Left Breast Reconstruction, Left Breast Painful Stage IV capsule Operation: Left Breast Reconstruction Revision, Removal of Left Breast Prosthesis with Capsule en-bloc, Insertion of New Implant Findings: Thick Contracted Capsule Post-Operative Diagnosis: Same as Pre-op Surgeon: German Quispe [employer]: Hernan Morris Specimens Removed: Left Breast Prosthesis with Capsule Estimated Blood Loss (mls): 100 Operative Report Dictated: Yes
[2018-12-31] MEDS ORDERED: ONDANSETRON 4 MG/2 ML VIAL IVPUSH PRN (13:18)
[2018-12-31] MEDS ORDERED: LACTATED RINGERS SOLUTION 1,000 ML IV SCH (13:30)
[2018-12-31] MEDS ORDERED: oxyCODONE HCL 5 MG TABLET ONE (14:07)
[2018-12-31 15:02] VITALS: TEMP 97.9
[2018-12-31 17:16] VITALS: BP 116/78; PULSE 80
--- NOTE | 2019-01-01 08:16 | OP ---
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 PROCEDURE PERFORMED: Left breast reconstruction revision with removal of left breast prosthesis and capsule en bloc and insertion of new implant. SURGEON: German Cotto MD FINAL COAT SPRAYER: ANGELICA Khoury ANESTHESIA: General via LMA. PROCEDURE: The patient was on the operating table in the supine position and general anesthesia was administered by the anesthesiologist. The area of the chest was prepped and draped in the usual sterile fashion. The left inframammary fold scar was now reopened with a No. 15 scalpel blade and dissection was carried down sharply through subcutaneous tissues with the electrocautery. The thick capsule of the implant was identified and after identifying the correct plane just over the capsule both blunt and electrocautery dissection were used to dissect the tissues off the capsule, leaving the capsule intact over the implant. Dissection continued both superiorly, laterally, medially and posteriorly, freeing the capsule from surrounding tissues and the implant and capsule were then removed en bloc from the breast. The entire capsule was removed as the capsule was completely intact circumferentially upon removal. Fiberoptic lighted retractors were used to help stop any bleeding and the lateral portion of the pocket was closed using No. 3-0 Biosyn suture as it extended up into the axilla. A No. 15-Turk[place] round Lex-Wasserman drain was used and inserted through a stab incision in the anterior axillary line and directed posteriorly. The implant then selected was the same size and type implant as had been previously placed which was a [place] MemoryGel Siltex round moderate plus profile implant, 500 mL in size. The implant was inserted with the assistance of a Smyth funnel without difficulty. After ensuring the implant was in proper orientation closure was performed. Deep tissues were closed with No. 3-0 and 4-0 Biosyn suture in interrupted buried fashion and a 4-0 V-Loc 90 suture was used in intradermal fashion for skin closure. The wound was secured with Steri-Strips and sterile dressings were applied consisting of Kerlix gauze and secured with a surgical bra. A 2-0 silk drain suture was used to suture the Lex-Wasserman drain in place. The patient was then awoken from anesthesia without any difficulty and taken from the operating room to the recovery room in satisfactory condition, having tolerated the procedure well. GERMAN COTTO M.D. /[id number]
--- NOTE | 2019-01-01 18:09 | PATH ---
Surgical Pathology Report Patient Name: RANDELL GONSALES [facility]. Rec. #: [id number] /Age/Gender: 1970 (Age: 48) / F Account: [id number] Location: AMBULATORY SURG Taken: 12/31/2018 Received: 12/31/2018 Reported: 01/01/2019 Physicians: German Quispe M.D. Specimen(s) Received REMOVED LEFT BREAST IMPLANT Clinical History Left breast reconstruction Final Diagnosis BREAST IMPLANT, LEFT, REMOVAL: SKIN WITH UNDERLYING DERMAL FIBROSIS. DENSE FIBROUS TISSUE WITH CHRONIC INFLAMMATION, HISTIOCYTIC INFILTRATE, AND GIANT CELL REACTION CONSISTENT WITH FIBROUS CAPSULE. BREAST IMPLANT. MACROSCOPIC DIAGNOSIS. Electronically Signed Misti Reza M.D. Gross Description Received fresh labeled "removed left breast implant," is a 14.5 cm diameter x 3.0 cm in depth dupont, intact, rubbery breast implant. Also received within the same container is a 14.5 x 5.5 x 0.6 cm dupont-pink fibrous capsule. No discrete masses are identified. Plasma Center Technician sections of the capsule are submitted in one cassette. /12/31/2018 [facility]/12/31/2018
== END 2018-12-31 15:30 | disposition home or self-care (01) ==
LOC: JASUSAT 06:02
PROVIDERS: ATTEND Plastic Surgery
PROC: 0HPU0JZ Removal of Synthetic Substitute from Left Breast, Open Approach (ICD-10-PCS; principal; 2018-12-31 10:00)
PROC: 0HRU0JZ Replacement of Left Breast with Synthetic Substitute, Open Approach (ICD-10-PCS; 2018-12-31 10:00)
DX: T85.44XA Capsular contracture of breast implant, initial encounter (principal); Y82.8 Other medical devices associated with adverse incidents; Y92.9 Unspecified place or not applicable; Z98.82 Breast implant status; N64.4 Mastodynia
CPT/HCPCS: 84703; 88304-TC; 94760

== ENCOUNTER 2020-02-17 06:13 | Day surgery (SDC) | payer BC ==
[2020-02-16 11:56] VITALS: BMI 27.3
[2020-02-17] MEDS ORDERED: LIDOCAINE HCL 2% JELLY (5 ML/TUBE) ONE (07:43)
[2020-02-17] MEDS ORDERED: GLYCOPYRROLATE 0.2 MG/1 ML VIAL ONE (07:43)
[2020-02-17] MEDS ORDERED: fentaNYL CITRATE 250 MCG/5 ML VIAL ONE (07:43)
[2020-02-17] MEDS ORDERED: LIDOCAINE HCL/PF 2% SDV 5ML VIAL ONE (07:43)
[2020-02-17] MEDS ORDERED: ceFAZolin SODIUM 1 GM VIAL ONE (07:43)
[2020-02-17] MEDS ORDERED: PROPOFOL 20 ML ONE ×3 (07:43)
[2020-02-17] MEDS ORDERED: DEXAMETHASONE SOD PHOSPHATE 4 MG/1 ML VIAL ONE (07:43)
[2020-02-17] MEDS ORDERED: ROCURONIUM BROMIDE 50 MG/5 ML SYRINGE ONE (07:44)
[2020-02-17] MEDS ORDERED: MIDAZOLAM HCL 2 MG/2 ML SINGLE DOSE VIAL ONE ×2 (07:44→07:45)
[2020-02-17] MEDS ORDERED: ceFAZolin SODIUM 1 GM VIAL IVPB ONE (08:47)
[2020-02-17] MEDS ORDERED: HYDROmorphone HCl 2 MG/ML VIAL ONE ×2 (10:09→11:16)
[2020-02-17] MEDS ORDERED: NEOSTIGMINE METHYLSULFATE 0.5 MG/ML - 10 ML MDV ONE (10:47)
[2020-02-17] MEDS ORDERED: oxyCODONE HCL 5 MG TABLET PO PRN ×2 (11:33→12:29)
[2020-02-17] MEDS ORDERED: LACTATED RINGERS SOLUTION 1,000 ML IV SCH (11:45)
[2020-02-17] MEDS ORDERED: ONDANSETRON 4 MG/2 ML VIAL IVPUSH PRN (11:45)
[2020-02-17] MEDS ORDERED: ACETAMINOPHEN INJECTION 100 ML IVPB ONE (12:48)
[2020-02-17] MEDS ORDERED: ACETAMINOPHEN 1000 MG/100 ML VIAL (NON FORMULARY) IVPB ONE (12:53)
[2020-02-17] MEDS: ACETAMINOPHEN 500 MG TABLET (FP) PO SCH ×2 (13:36→20:27)
[2020-02-17] MEDS: oxyCODONE HCL 5 MG TABLET PO PRN ×3 (14:51→23:03)
[2020-02-17] MEDS ORDERED: ALBUTEROL SO4 HFA INHALER IH PRN ×2 (16:09→17:56)
[2020-02-17] MEDS ORDERED: clonazePAM 0.5 MG TABLET PO PRN ×2 (16:09→17:56)
[2020-02-17] MEDS ORDERED: GABAPENTIN 100 MG CAPSULE PO PRN (16:09)
[2020-02-17] MEDS ORDERED: PNEUMOC 13-VAL CONJ-DIP CRM/PF 0.5 ML DISP.SYRIN IM ONE (20:00)
[2020-02-17] MEDS: GABAPENTIN 300 MG CAPSULE PO SCH (22:16)
[2020-02-17] MEDS: diazePAM 5 MG TABLET PO SCH (22:16)
[2020-02-18] MEDS: oxyCODONE HCL 5 MG TABLET PO PRN (04:25)
[2020-02-18] MEDS: ACETAMINOPHEN 500 MG TABLET (FP) PO SCH (04:26)
[2020-02-18] MEDS: GABAPENTIN 300 MG CAPSULE PO SCH (05:55)
[2020-02-18] MEDS ORDERED: PT OWN MED DRAWER 7, Y5N ONE (07:31)
[2020-02-18] MEDS ORDERED: ASPIRIN COATED 81 MG TABLET.EC PO SCH (10:00)
[2020-02-18] MEDS ORDERED: ATENOLOL 50 MG TABLET (FP) PO SCH (10:00)
[2020-02-18] MEDS ORDERED: PATIENT'S OWN MEDICATION (NON-FORMULARY) (Beclomethasone Dipropionate [Qvar] 8.7 GM Aer.W. IH SCH (10:00)
[2020-02-18] MEDS ORDERED: HYDROCHLOROTHIAZIDE 25 MG TABLET (FP) PO SCH (10:00)
[2020-02-18] MEDS ORDERED: PANTOPRAZOLE 40 MG TABLET PO SCH (10:00)
[2020-02-18] MEDS: diazePAM 5 MG TABLET PO SCH (10:01)
[2020-02-18 12:07] VITALS: BP 156/91; PULSE 83; TEMP 98.7
== END 2020-02-18 10:59 | disposition home or self-care (01) ==
LOC: JASUSAT 06:13 → J8W 13:46 → JASUSAT 02-18 10:59
PROVIDERS: ATTEND Plastic Surgery
PROC: 0HQT0ZZ Repair Right Breast, Open Approach (ICD-10-PCS; 2020-02-17)
PROC: 0HWU0JZ Revision of Synthetic Substitute in Left Breast, Open Approach (ICD-10-PCS; 2020-02-17)
PROC: 0HWT0JZ Revision of Synthetic Substitute in Right Breast, Open Approach (ICD-10-PCS; 2020-02-17)
PROC: 0HPU0JZ Removal of Synthetic Substitute from Left Breast, Open Approach (ICD-10-PCS; principal; 2020-02-17 08:00)
PROC: 0HRU0JZ Replacement of Left Breast with Synthetic Substitute, Open Approach (ICD-10-PCS; 2020-02-17 08:00)
DX: T85.44XA Capsular contracture of breast implant, initial encounter (principal); Y82.8 Other medical devices associated with adverse incidents; Y92.9 Unspecified place or not applicable; Z85.3 Personal history of malignant neoplasm of breast; N65.1 Disproportion of reconstructed breast; Z90.13 Acquired absence of bilateral breasts and nipples
CPT/HCPCS: 84703; 88300-TC; 88304-TC; 88305-TC; 90670; 94760; J0131

== ENCOUNTER 2020-10-01 04:40 | Day surgery (SDC) | payer BC ==
[2020-09-28 15:08] VITALS: BMI 27.3
[2020-10-01] MEDS ORDERED: DEXMEDETOMIDINE HCL 200 MCG/2 ML IVPB ONE (06:57)
[2020-10-01] MEDS ORDERED: ACETAMINOPHEN INJECTION 200 ML IVPB ONE (06:58)
[2020-10-01] MEDS ORDERED: LIDOCAINE HCL/PF 2% SDV 5ML VIAL ONE ×2 (07:13→08:53)
[2020-10-01] MEDS ORDERED: LIDOCAINE HCL 2% JELLY 10 ML CARTRIDGE ONE (07:13)
[2020-10-01] MEDS ORDERED: KETOROLAC TROMETHAMINE 30 MG/1 ML VIAL ONE (07:13)
[2020-10-01] MEDS ORDERED: PROPOFOL 20 ML ONE ×3 (07:14)
[2020-10-01] MEDS ORDERED: fentaNYL CITRATE 250 MCG/5 ML VIAL ONE (07:15)
[2020-10-01] MEDS ORDERED: KETAMINE HCL 200 MG/20 ML VIAL ONE (07:15)
[2020-10-01] MEDS ORDERED: MIDAZOLAM HCL 2 MG/2 ML SINGLE DOSE VIAL ONE (07:15)
[2020-10-01] MEDS ORDERED: SUCCINYLCHOLINE CHLORIDE 200 MG/10 ML SYRINGE ONE ×2 (07:17→08:52)
[2020-10-01] MEDS ORDERED: ceFAZolin 2 GRAM PREMIX BAG IVPB ONE (08:40)
[2020-10-01] MEDS ORDERED: ceFAZolin SODIUM 1 GM VIAL ONE (08:53)
[2020-10-01] MEDS ORDERED: oxyCODONE HCL 5 MG TABLET PO PRN (11:51)
[2020-10-01 12:36] VITALS: TEMP 97
[2020-10-01 12:58] VITALS: BP 110/70; PULSE 60
== END 2020-10-01 12:45 | disposition home or self-care (01) ==
LOC: JASUSAT 04:40
PROVIDERS: ATTEND Plastic Surgery
PROC: 0HUU0JZ Supplement Left Breast with Synthetic Substitute, Open Approach (ICD-10-PCS; 2020-10-01)
PROC: 0HWT0JZ Revision of Synthetic Substitute in Right Breast, Open Approach (ICD-10-PCS; principal; 2020-10-01 08:00)
PROC: 0HPU0JZ Removal of Synthetic Substitute from Left Breast, Open Approach (ICD-10-PCS; 2020-10-01 08:00)
DX: N65.1 Disproportion of reconstructed breast (principal); T85.848A Pain due to other internal prosthetic devices, implants and grafts, initial encounter; Z85.3 Personal history of malignant neoplasm of breast; Z90.13 Acquired absence of bilateral breasts and nipples; Y82.8 Other medical devices associated with adverse incidents; Y92.9 Unspecified place or not applicable
CPT/HCPCS: 81025; 88300-TC; 88304-TC; 94760; J0131

== ENCOUNTER 2020-12-15 08:55 | Emergency (ER) | payer BC ==
[2020-12-15 09:03] VITALS: BP 143/83; PULSE 104; TEMP 97.9; BMI 26.4
[2020-12-15] MEDS ORDERED: SODIUM CHLORIDE 0.9% 1000 ML INFUS.BAG IV ONE (09:44)
[2020-12-15] MEDS ORDERED: morphine CARPU-JECT 4 MG/1 ML DISP.SYRIN IVPUSH ONE (09:53)
[2020-12-15] MEDS ORDERED: morphine SULFATE 4 MG/ML VIAL ONE (10:00)
[2020-12-15 10:47] LABS: BASO % 0.3 % (0-2.0); EOS % 0.3 % (0-4.5); HEMATOCRIT 36.5 % (32.4-45.2); HEMOGLOBIN 12.6 GM/dL (10.7-15.3); LYMPH % 15.8 % (8-40); MCH 33.1 pg (25.7-33.7); MCHC 34.5 g/dl (32.0-36.0); MEAN CELL VOLUME 95.8 fl (80-96); MEAN PLT VOLUME 8.6 fl (7.5-11.1); MONO % 6.5 % (3.8-10.2); NEUT % 77.1 % (42.8-82.8); PLATELET COUNT 230 10^3/uL (134-434); RBC 3.81 M/mm3 (3.60-5.2); RDW 13.1 % (11.6-15.6); WHITE BLOOD COUNT 9.1 K/mm3 (4.0-10.0)
[2020-12-15 11:04] LABS: CHLORIDE 110 mmol/L (98-107); SODIUM 136 mmol/L (136-145)
[2020-12-15 11:05] LABS: ALBUMIN 3.5 g/dl (3.4-5.0); BLOOD UREA NITROGEN 10.7 mg/dL (7-18); CO2 23 mmol/L (21-32)
[2020-12-15 11:07] LABS: GLUCOSE,RANDOM 89 mg/dL (74-106)
[2020-12-15 11:08] LABS: CREATININE 0.7 mg/dL (0.55-1.3); SGOT/AST 45 U/L (15-37); SGPT/ALT 18 U/L (13-61)
[2020-12-15 11:10] LABS: BILIRUBIN,TOTAL 0.6 mg/dL (0.2-1); TOT PROT 7.3 g/dl (6.4-8.2)
[2020-12-15 11:11] LABS: ALK PHOS 60 U/L (45-117)
[2020-12-15 11:13] LABS: ANION GAP 3 MMOL/L (8-16)
== END 2020-12-15 15:52 | disposition home or self-care (01) ==
LOC: JER 08:55
PROC: 3E033NZ Introduction of Analgesics, Hypnotics, Sedatives into Peripheral Vein, Percutaneous Approach (ICD-10-PCS; principal; 2020-12-15)
DX: N64.4 Mastodynia (principal)
CPT/HCPCS: 36415; 71275-TC; 76642-TC-RT; 80053; 83605; 84132; 85025; 87040; 99285-25; Q9967

== ENCOUNTER 2022-05-15 04:07 | Day surgery (SDC) | payer BC ==
[2022-05-11 16:33] VITALS: BMI 28.1
[2022-05-15] MEDS ORDERED: LIDOCAINE HCL 1%, 10 MG/ML (10ML VIAL) MDV ONE (09:34)
[2022-05-15] MEDS ORDERED: PROPOFOL 20 ML ONE (09:43)
[2022-05-15] MEDS ORDERED: MIDAZOLAM HCL 2 MG/2 ML SINGLE DOSE VIAL ONE ×2 (09:43→10:00)
[2022-05-15] MEDS ORDERED: ACETAMINOPHEN INJECTION 100 ML IVPB ONE (09:55)
[2022-05-15] MEDS ORDERED: ceFAZolin SODIUM 1 GM VIAL IVPB ONE (09:58)
[2022-05-15] MEDS ORDERED: ceFAZolin SODIUM 1 GM VIAL ONE ×2 (10:00)
[2022-05-15] MEDS ORDERED: LIDOCAINE 1% P/F 10 MG/ML VIAL INF ONE (10:08)
[2022-05-15] MEDS ORDERED: ONDANSETRON 4 MG/2 ML VIAL IVPUSH PRN (10:40)
[2022-05-15] MEDS ORDERED: oxyCODONE HCL 5 MG TABLET PO PRN (10:40)
[2022-05-15 11:35] VITALS: RESP 18
[2022-05-15 12:18] VITALS: TEMP 97.8
[2022-05-15 14:01] VITALS: BP 119/69; PULSE 61
== END 2022-05-15 12:50 | disposition home or self-care (01) ==
LOC: JASU-SURG 04:07
PROVIDERS: ATTEND Surgery
PROC: 0HBU0ZZ Excision of Left Breast, Open Approach (ICD-10-PCS; principal; 2022-05-15 09:00)
DX: N60.92 Unspecified benign mammary dysplasia of left breast (principal)
CPT/HCPCS: 19281; 76098-TC-FY; 81025; 88307-TC; 94760

== ENCOUNTER 2022-10-04 06:08 | Day surgery (SDC) | payer BC ==
[2022-10-04 07:11] VITALS: BMI 28.5
[2022-10-04] MEDS ORDERED: BUPIVACAINE HCL/PF 2.5 MG/ML - 30 ML VIAL IJ ONE (07:19)
[2022-10-04] MEDS ORDERED: MIDAZOLAM HCL 2 MG/2 ML SINGLE DOSE VIAL ONE (07:27)
[2022-10-04] MEDS ORDERED: PROPOFOL 20 ML ONE (07:27)
[2022-10-04] MEDS ORDERED: LIDOCAINE HCL/PF 2% SDV 5ML VIAL ONE (07:30)
[2022-10-04] MEDS ORDERED: ONDANSETRON 4 MG/2 ML VIAL ONE (07:30)
[2022-10-04] MEDS ORDERED: ceFAZolin SODIUM 1 GM VIAL ONE (07:30)
[2022-10-04] MEDS ORDERED: DEXAMETHASONE SOD PHOSPHATE 4 MG/1 ML VIAL ONE (07:30)
[2022-10-04] MEDS ORDERED: oxyCODONE HCL 5 MG TABLET PO PRN (11:09)
[2022-10-04] MEDS ORDERED: ONDANSETRON 4 MG/2 ML VIAL IVPUSH PRN (11:09)
[2022-10-04] MEDS ORDERED: FENTANYL CITRATE/PF 50 MCG/ML VIAL ONE ×2 (11:13→11:55)
[2022-10-04] MEDS ORDERED: LACTATED RINGERS SOLUTION 1,000 ML IV SCH (11:15)
[2022-10-04 14:48] VITALS: RESP 17; TEMP 97
[2022-10-04 14:55] VITALS: BP 120/84; PULSE 76
== END 2022-10-04 13:35 | disposition home or self-care (01) ==
LOC: FASU 06:08
PROVIDERS: ATTEND Plastic Surgery
PROC: 0HRV0JZ Replacement of Bilateral Breast with Synthetic Substitute, Open Approach (ICD-10-PCS; 2022-10-04)
PROC: 0HQV0ZZ Repair Bilateral Breast, Open Approach (ICD-10-PCS; 2022-10-04)
PROC: 0HPU0JZ Removal of Synthetic Substitute from Left Breast, Open Approach (ICD-10-PCS; principal; 2022-10-04 08:40)
PROC: 0HPT0JZ Removal of Synthetic Substitute from Right Breast, Open Approach (ICD-10-PCS; 2022-10-04 08:40)
DX: T85.44XA Capsular contracture of breast implant, initial encounter (principal); Y82.8 Other medical devices associated with adverse incidents; Y92.9 Unspecified place or not applicable
CPT/HCPCS: 19342; 19371; 19380; L8600; 81025; 94760; C1789